=== PATIENT | female | born 1945 | race African-American/Black ===

== ENCOUNTER 2019-03-11 11:38 | Emergency (ER) | payer MEDICARE ==
--- NOTE | 2019-03-11 12:17 | ER Document Report ---
ED Medical Screen (RME) - General Chief Complaint: Eye Pain Stated Complaint: LEFT EYE PAIN Time Seen by Provider: 03/11/19 12:15 Mode of Arrival: Ambulatory Information source: Patient Notes: 73-year-old female presents to ED for subconjunctival hematoma. She states she was washing her eyes this morning when she had a pop and then she noticed the bleeding. Regular eye briskly and has not injured her eye. She is alert oriented respirations regular and unlabored. She states that when she opens her eyes. She states she put ice pack on the eye and it looks like the bleeding increased. I have greeted and performed a rapid initial assessment of this patient. A comprehensive ED assessment and evaluation of the patient, analysis of test results and completion of medical decision making process will be conducted by an additional ED providers. TRAVEL OUTSIDE OF THE [place] IN LAST 30 DAYS: No - Related Data Allergies/Adverse Reactions: Penicillins Allergy (Verified 03/11/19 11:43) Physical Exam - Vital signs Vitals: Temp Pulse Resp BP Pulse Ox 98.4 F 83 18 156/78 H 96 03/11/19 11:47 03/11/19 11:47 03/11/19 11:47 03/11/19 11:47 03/11/19 11:47 Course - Vital Signs Vital signs: Temp Pulse Resp BP Pulse Ox 98.4 F 83 18 156/78 H 96 03/11/19 11:47 03/11/19 11:47 03/11/19 11:47 03/11/19 11:47 03/11/19 11:47
--- NOTE | 2019-03-11 14:25 | ER Document Report ---
ED General - General Chief Complaint: Eye Pain Stated Complaint: LEFT EYE PAIN Time Seen by Provider: 03/11/19 12:15 Mode of Arrival: Ambulatory TRAVEL OUTSIDE OF THE [place] IN LAST 30 DAYS: No - HPI Notes: Patient is a 73-year-old female presents emergency department for evaluation. She is here traveling visiting family. She states she was washing her face earlier. She rubbed the washcloth over her close left eye and developed significant redness. She states that she felt a "pop". She denies visual changes. She is not currently on any sort of blood thinners of any sort. She denies any other acute complaints or concerns. She states her blood pressure was elevated slightly while she was here, but that they check her blood pressure regularly at home and it was found to be in her normal range. She denies any chest pain or difficulty breathing. No difficulty seeing, speaking, swallowing. Moving arms and legs without difficulty. Urinating normally. - Related Data Allergies/Adverse Reactions: Penicillins Allergy (Verified 03/11/19 11:43) Home Medications: None Past Medical History - General Information source: Patient - Social History Smoking Status: Never Smoker Chew tobacco use (# tins/day): No Frequency of alcohol use: None Drug Abuse: None Family History: Reviewed & Not Pertinent Patient has suicidal ideation: No Patient has homicidal ideation: No Review of Systems - Review of Systems Constitutional: No symptoms reported EENT: See HPI Cardiovascular: No symptoms reported Respiratory: No symptoms reported Gastrointestinal: No symptoms reported Genitourinary: No symptoms reported Musculoskeletal: No symptoms reported Skin: No symptoms reported Neurological/Psychological: No symptoms reported Physical Exam - Vital signs Vitals: Temp Pulse Resp BP Pulse Ox 98.4 F 83 18 156/78 H 96 03/11/19 11:47 03/11/19 11:47 03/11/19 11:47 03/11/19 11:47 03/11/19 11:47 - Notes Notes: Vital signs reviewed, please refer to chart. Head is normocephalic, atraumatic. Pupils equal round, reactive to light. Neck is supple without meningismus. Heart is regular rate and rhythm. Lungs are clear to auscultation bilaterally. Abdomen is soft, nontender, normoactive bowel sounds throughout. Extremities without cyanosis, clubbing. Posterior calves are nontender. Peripheral pulses are equal. Skin is warm and dry. Patient is awake, alert, neurological exam is nonfocal. Patient is awake, alert, oriented x3. Cranial nerves II - XII are grossly intact without focal neurological deficits. Strength is plus 5 out of 5 bilateral upper and lower extremities. Sensation is intact. Reflexes symmetrical. Intact [id number], rapid alternating movements, [id number]. - HEENT Head: Normocephalic Eyes: Other - Subconjunctival hemorrhage on the left eye Cornea: Normal Extraocular movements intact: Yes Eyelashes: Normal Pupils: PERRL Visual acuity- Right eye: 20/20 Visual acuity- Left eye: 20/30 Visual acuity- Both eyes: 20/30 Corrective lenses worn: Yes Anterior chamber: Normal Fundascopic: Normal Nerve palsy: No Visual cline normal: Yes Course - Re-evaluation Re-evalutation: 03/11/19 14:23 Patient presents emergency department for evaluation. Her findings are most consistent with subconjunctival hemorrhage. She is not any blood thinners. We did discuss her mildly elevated blood pressure, but she has no neurological deficits, no signs of endorgan damage. We will have her follow-up with primary care. She is given instructions on some conjunctival hemorrhage, is to return to the ED with worsening or new concerning symptoms of any sort. - Vital Signs Vital signs: Temp Pulse Resp BP Pulse Ox 98.4 F 83 18 156/78 H 96 03/11/19 11:47 03/11/19 11:47 03/11/19 11:47 03/11/19 11:47 03/11/19 11:47 Discharge - Discharge Clinical Impression: Subconjunctival hemorrhage of left eye Condition: Stable Disposition: HOME, SELF-CARE Instructions: Subconjunctival Hemorrhage ([facility]) Additional Instructions: Follow-up with your primary care provider in 1 to 2 weeks. Return to the emergency department with worsening or new concerning symptoms of any sort. Forms: Elevated Blood Pressure
[2019-03-11 14:52] VITALS: BP 148/72
== END 2019-03-11 14:52 | disposition home or self-care (01) ==
LOC: ER 11:38
DX: H11.32 Conjunctival hemorrhage, left eye (principal); H57.12 Ocular pain, left eye
CPT/HCPCS: 99283